=== PATIENT | female | born 1960 | race Caucasian/White ===

== ENCOUNTER 2019-06-09 04:49 | Inpatient (IN) | payer MEDICAID ==
[~2019-06-09] VITALS: Ht 162.6 cm; Wt 114.2 kg
[~2019-06-09 04:49] MED LIST: PROP40TA72 PO; VENL150C50 PO
[2019-06-09] MEDS ORDERED: albuterol 2.5 MG/3 ML nebule NEB ONE (05:00)
[2019-06-09] MEDS ORDERED: methylPREDNISolone sod succ 125mg/2ml vial IV ONE (05:05)
[2019-06-09 05:38] LABS: BASOPHILS # (AUTO) 0.1 X10'3 (0-0.2); BASOPHILS % (AUTO) 0.9 % (0-1); EOSINOPHILS # (AUTO) 0.2 X10'3 (0-0.9); EOSINOPHILS % (AUTO) 2.3 % (0-6); HEMATOCRIT 29.7 % (35.0-45.0); HEMOGLOBIN 9.6 g/dl (12.0-16.0); LYMPHOCYTES # (AUTO) 2.1 X10'3 (1.1-4.8); MEAN CORPUSCULAR HGB CONC 32.5 g/dL (33.0-36.5); MEAN CORPUSCULAR VOLUME 92.5 FL (78-98); MEAN PLATELET VOLUME 7.2 FL (7.4-10.4); MONOCYTES # (AUTO) 0.4 X10'3 (0-0.9); MONOCYTES % (AUTO) 5.8 % (2-12); NEUTROPHILS # (AUTO) 4.5 X10'3 (1.8-7.7); PLATELET COUNT 217 X10'3 (140-440); RED BLOOD COUNT 3.21 X10'6 (4.20-5.60); RED CELL DISTRIBUTION WIDTH 16.9 % (11.5-14.5); WHITE BLOOD COUNT 7.3 X10'3 (4.5-11.0)
[2019-06-09 06:16] LABS: ALANINE AMINOTRANSFERASE 19 U/L (12-78); ALBUMIN 3.2 G/DL (3.4-5.0); ALBUMIN/GLOBULIN RATIO 0.7 (1.1-1.5); ALKALINE PHOSPHATASE 63 IU/L (46-116); ANION GAP 11 (8-16); ASPARTATE AMINO TRANSFERASE 19 U/L (10-37); BILIRUBIN,TOTAL 0.5 MG/DL (0.1-1.0); BLOOD UREA NITROGEN 16 MG/DL (7-18); BUN/CREATININE RATIO 14.5 (6.6-38.0); CALCIUM 8.5 MG/DL (8.5-10.1); CHLORIDE 105 MMOL/L (99-107); GLUCOSE 127 MG/DL (70-104); POTASSIUM 3.9 MMOL/L (3.5-5.1); SODIUM 141 MMOL/L (135-145); TOTAL CARBON DIOXIDE 25.3 MMOL/L (24-32); TOTAL PROTEIN 7.9 G/DL (6.4-8.2); eGFR 51 ML/MIN
[2019-06-09 06:17] LABS: PARTIAL THROMBOPLASTIN TIME 27 SECONDS (22-32)
[2019-06-09] MEDS ORDERED: aspirin 325mg tablet PO ONE (06:35)
[2019-06-09] MEDS ORDERED: heparin 10,000 units/1 ML INJ IV ONE ×2 (06:40→06:50)
[2019-06-09] MEDS ORDERED: heparin 10,000 units/1 ML INJ IV PRN (06:40)
[2019-06-09] MEDS: heparin 25,000 UNIT/250ml bag 250 ML IV SCH ×2 (07:19→20:09)
[2019-06-09] MEDS ORDERED: furosemide 10 MG/1 ML 10ml inj IV ONE (07:25)
[2019-06-09] MEDS ORDERED: acetaminophen 325mg tablet PO PRN (07:50)
[2019-06-09] MEDS ORDERED: ondansetron/PF 4mg/2ml inj IV PRN (07:50)
[2019-06-09] MEDS ORDERED: magnesium hydroxide 30ml (MOM) UD suspension PO PRN (07:50)
[2019-06-09] MEDS ORDERED: mag hydrox/Alum hydrox/simeth 30ml oral suspension PO PRN (07:50)
[2019-06-09] MEDS: furosemide 20 MG/2 ML vial IV SCH ×2 (08:00→20:15)
[2019-06-09] MEDS ORDERED: LISI-600 PO (08:02)
[2019-06-09] MEDS ORDERED: ONDA4TAB6 PO (08:40)
[2019-06-09] MEDS ORDERED: ATOR10TA87 PO (08:40)
[2019-06-09] MEDS ORDERED: LISI-642 PO (08:40)
[2019-06-09] MEDS: atorvastatin 20mg tablet PO SCH (09:52)
[2019-06-09] MEDS: aspirin 81mg tablet.DR PO SCH (09:52)
--- NOTE | 2019-06-09 11:00 | NUR ---
Patient in room PCU 3012. I have received report from SHIKHA Galan and had the opportunity to ask questions and assume patient care.
[2019-06-09] MEDS ORDERED: LISI2.5T2 PO (11:05)
[2019-06-09] MEDS ORDERED: PROP20TA6 PO (11:06)
[2019-06-09 11:25] VITALS: BP 124/43
[2019-06-09] MEDS: ipratropium/albuterol 3ml nebule NEB SCH ×4 (11:46→23:41)
[2019-06-09 12:00] VITALS: BP 110/54
--- NOTE | 2019-06-09 12:11 | NUR ---
Sent to Dr Fontaine PAGER ID: [phone] MESSAGE: RE: Joyce Oliver 3012C. Q6hr PTT needed for heparin drip. Next one due at 3478. -[place] 0202
[2019-06-09 15:00] VITALS: BP 155/68
[2019-06-09] MEDS ORDERED: pneumococcal 23-VAL P-sac vacc 25 mcg/0.5ml vial IMVAC ONE (17:25)
[2019-06-09 18:00] VITALS: BP 118/65
[2019-06-09] MEDS ORDERED: iohexol 350MG/ML 100ml bottle IV ONE (18:06)
--- NOTE | 2019-06-09 18:08 | NUR ---
Sent to Dr Fontaine PAGER ID: [phone] MESSAGE: RE: Joyce Oliver [id number]. Are we continuing the heparin drip after it finishes? -[facility] [phone]
--- NOTE | 2019-06-09 18:25 | NUR ---
Patient in room PCU 3012C. I have received report from SHIKHA Fournier and had the opportunity to ask questions and assume patient care. Pt is in 3L of oxygen via NC, denies CP, dizziness, or pain. Will continue to monitor
--- NOTE | 2019-06-09 18:41 | NUR ---
Problems reprioritized. Patient report given, questions answered & plan of care reviewed with SHIKHA Buck and SHIKHA Blancas.
[2019-06-09] MEDS: methylPREDNISolone sod succ 125mg/2ml vial IV SCH (20:16)
--- NOTE | 2019-06-09 21:21 | NUR ---
PAGER ID: [phone] MESSAGE: [id number] Joyce Oliver gtt running @ 1200units/hr. CT of chest resulted, negative for PE. Last troponin 0.05. Continue? Cielo TRIVEDI [id number] Addendum: 06/09/19 at 2135 by Cielo Lozano RN Orders to D/Marielos wheeler
[2019-06-09] MEDS: levoFLOXACIN-Levaquin 500mg/D5 100 ML IV SCH (21:54)
[2019-06-09 22:00] VITALS: BP 126/62
[2019-06-10 02:00] VITALS: BP 124/63
[2019-06-10] MEDS: ipratropium/albuterol 3ml nebule NEB SCH ×6 (03:34→23:25)
[2019-06-10 06:09] LABS: BASOPHILS % (AUTO) 0.3 % (0-1); EOSINOPHILS % (AUTO) 0 % (0-6); HEMATOCRIT 29.5 % (35.0-45.0); HEMOGLOBIN 9.4 g/dl (12.0-16.0); LYMPHOCYTES # (AUTO) 0.6 X10'3 (1.1-4.8); LYMPHOCYTES % (AUTO) 3.8 % (21-51); MEAN CORPUSCULAR HEMOGLOBIN 29.3 PG (27.0-31.0); MEAN CORPUSCULAR HGB CONC 31.9 g/dL (33.0-36.5); MEAN CORPUSCULAR VOLUME 91.9 FL (78-98); MEAN PLATELET VOLUME 7.3 FL (7.4-10.4); MONOCYTES # (AUTO) 0.4 X10'3 (0-0.9); MONOCYTES % (AUTO) 2.3 % (2-12); NEUTROPHILS # (AUTO) 15.7 X10'3 (1.8-7.7); NEUTROPHILS % (AUTO) 93.6 % (42-75); PLATELET COUNT 193 X10'3 (140-440); RED CELL DISTRIBUTION WIDTH 16.9 % (11.5-14.5); WHITE BLOOD COUNT 16.8 X10'3 (4.5-11.0)
--- NOTE | 2019-06-10 06:25 | NUR ---
[place]rientee documentation: I have reviewed and agree with all interventions, assessments performed and documented by Anna Marie TRIVEDI. [place]ee Medication Administration: For this medication-pass time frame, all medication were reviewed, dispensed, administered and documented per hospital policy by Anna Marie TRIVEDI
[2019-06-10 06:29] LABS: ALBUMIN 3.1 G/DL (3.4-5.0); ANION GAP 10 (8-16); BLOOD UREA NITROGEN 24 MG/DL (7-18); CALCIUM 8.8 MG/DL (8.5-10.1); CHLORIDE 104 MMOL/L (99-107); CREATININE 1.09 MG/DL (0.40-0.90); GLUCOSE 155 MG/DL (70-104); POTASSIUM 4.4 MMOL/L (3.5-5.1); SODIUM 142 MMOL/L (135-145); TOTAL CARBON DIOXIDE 27.9 MMOL/L (24-32); eGFR 52 ML/MIN
--- NOTE | 2019-06-10 06:35 | NUR ---
Problems reprioritized. Patient report given, questions answered & plan of care reviewed with Mariah RN.
--- NOTE | 2019-06-10 06:40 | NUR ---
Patient in room PCU 3012. I have received report from SHIKHA Buck and had the opportunity to ask questions and assume patient care.
[2019-06-10 07:00] VITALS: BP 97/55
[2019-06-10] MEDS ORDERED: metoprolol tartrate 50mg tablet PO ONE (10:55)
[2019-06-10 11:00] VITALS: BP 125/63
[2019-06-10] MEDS: levoFLOXACIN-Levaquin 500mg/D5 100 ML IV SCH (11:11)
[2019-06-10] MEDS: aspirin 81mg tablet.DR PO SCH (11:12)
[2019-06-10] MEDS: atorvastatin 20mg tablet PO SCH (11:12)
[2019-06-10] MEDS: methylPREDNISolone sod succ 125mg/2ml vial IV SCH ×2 (11:12→20:09)
[2019-06-10] MEDS: enoxaparin 40mg/0.4ml syringe SQ SCH (11:13)
[2019-06-10] MEDS ORDERED: pneumococcal 23-VAL P-sac vacc 25 mcg/0.5ml vial IMVAC ONE (12:10)
[2019-06-10] MEDS ORDERED: nitroGLYCERIN 0.4mg SUBLingual tab SL PRN (13:45)
[2019-06-10] MEDS ORDERED: metoprolol tartrate 1mg/ml inj IV PRN (13:45)
[2019-06-10] MEDS ORDERED: aminophylline 250mg/10ml inj. IV PRN (13:45)
[2019-06-10] MEDS ORDERED: regadenoson 0.4mg/5ml syringe IV PRN (13:45)
--- NOTE | 2019-06-10 14:45 | NUR ---
Pt off the floor to NM for a portion of armond scan
[2019-06-10 15:00] VITALS: BP 107/59
[2019-06-10 18:00] VITALS: BP 103/60
--- NOTE | 2019-06-10 18:30 | NUR ---
Problems reprioritized. Patient report given, questions answered & plan of care reviewed with SHIKHA Palomo.
[2019-06-10] MEDS ORDERED: non-formulary drug (Propranolol Hcl 1 TAB) PO SCH (20:00)
[2019-06-10] MEDS ORDERED: metoprolol tartrate 12.5mg (1/2 tablet) PO SCH (20:00)
[2019-06-10] MEDS: furosemide 40mg/4ml inj IV SCH (20:09)
[2019-06-10] MEDS: propranolol 10mg tablet PO SCH (20:12)
[2019-06-10] MEDS: lactobacillus rhamnosus 10,000 MMU CELLS/CAPSULE PO SCH (20:13)
[2019-06-10 22:00] VITALS: BP 115/56
[2019-06-11 02:00] VITALS: BP 135/75
[2019-06-11] MEDS: ipratropium/albuterol 3ml nebule NEB SCH ×6 (03:17→23:00)
[2019-06-11 05:26] LABS: BASOPHILS % (AUTO) 0.1 % (0-1); EOSINOPHILS % (AUTO) 0 % (0-6); HEMATOCRIT 28.8 % (35.0-45.0); HEMOGLOBIN 9.1 g/dl (12.0-16.0); LYMPHOCYTES # (AUTO) 0.8 X10'3 (1.1-4.8); LYMPHOCYTES % (AUTO) 6.4 % (21-51); MEAN CORPUSCULAR HEMOGLOBIN 29.2 PG (27.0-31.0); MEAN CORPUSCULAR HGB CONC 31.6 g/dL (33.0-36.5); MEAN CORPUSCULAR VOLUME 92.4 FL (78-98); MEAN PLATELET VOLUME 7.8 FL (7.4-10.4); MONOCYTES # (AUTO) 0.3 X10'3 (0-0.9); MONOCYTES % (AUTO) 2.7 % (2-12); NEUTROPHILS % (AUTO) 90.8 % (42-75); PLATELET COUNT 194 X10'3 (140-440); RED BLOOD COUNT 3.11 X10'6 (4.20-5.60); RED CELL DISTRIBUTION WIDTH 17.4 % (11.5-14.5); WHITE BLOOD COUNT 12.1 X10'3 (4.5-11.0)
[2019-06-11 05:27] LABS: ALBUMIN 3.2 G/DL (3.4-5.0); ANION GAP 6 (8-16); BLOOD UREA NITROGEN 32 MG/DL (7-18); BUN/CREATININE RATIO 29.6 (6.6-38.0); CALCIUM 8.7 MG/DL (8.5-10.1); CHLORIDE 103 MMOL/L (99-107); CREATININE 1.08 MG/DL (0.40-0.90); GLUCOSE 146 MG/DL (70-104); POTASSIUM 4.7 MMOL/L (3.5-5.1); SODIUM 139 MMOL/L (135-145); TOTAL CARBON DIOXIDE 30.3 MMOL/L (24-32); eGFR 52 ML/MIN
--- NOTE | 2019-06-11 06:15 | NUR ---
Problems reprioritized. Patient report given, questions answered & plan of care reviewed with Catherine TRIVEDI.
--- NOTE | 2019-06-11 06:55 | NUR ---
Patient in room PCU 3012. I have received report from Stacia and had the opportunity to ask questions and assume patient care.
[2019-06-11 07:00] VITALS: BP 106/50
[2019-06-11] MEDS: propranolol 10mg tablet PO SCH ×2 (07:35→21:07)
[2019-06-11] MEDS: aspirin 81mg tablet.DR PO SCH (07:35)
[2019-06-11] MEDS: enoxaparin 40mg/0.4ml syringe SQ SCH (07:35)
[2019-06-11] MEDS: lactobacillus rhamnosus 10,000 MMU CELLS/CAPSULE PO SCH ×2 (07:35→21:07)
[2019-06-11] MEDS: lisinopril 2.5mg tablet PO SCH (07:35)
[2019-06-11] MEDS: atorvastatin 10mg tablet PO SCH (07:36)
[2019-06-11] MEDS: venlafaxine XR 75mg capsule (Q24H) PO SCH (07:36)
[2019-06-11] MEDS: furosemide 40mg/4ml inj IV SCH (07:36)
[2019-06-11] MEDS: levoFLOXACIN-Levaquin 500mg/D5 100 ML IV SCH (07:36)
[2019-06-11] MEDS: methylPREDNISolone sod succ 125mg/2ml vial IV SCH ×2 (07:36→21:06)
[2019-06-11] MEDS ORDERED: VENLAFAXINE HCL 150 MG PO SCH (08:00)
[2019-06-11 11:00] VITALS: BP 92/53
[2019-06-11 15:00] VITALS: BP 114/71
--- NOTE | 2019-06-11 18:10 | NUR ---
Problems reprioritized. Patient report given, questions answered & plan of care reviewed with Aleyda TRIVEDI.
--- NOTE | 2019-06-11 18:30 | NUR ---
Patient in room PCU 3012. I have received report from Rachele TRIVEDI and had the opportunity to ask questions and assume patient care with Violetta TRIVEDI.. pt resting in bed, lots of family at bedside. Code status discussion with pt and family, pt is very clear that she wants to be DNR. order obtained from Addendum: 06/12/19 at 0702 by Aleyda Riggs RN please disregard note about code status, this was the wrong pt. this pt still Full code
[2019-06-11 19:00] VITALS: BP 134/64
[2019-06-11] MEDS: furosemide 20 MG/2 ML vial IV SCH (21:05)
[2019-06-11 23:00] VITALS: BP 109/57
[2019-06-12 03:00] VITALS: BP 130/77
[2019-06-12] MEDS: ipratropium/albuterol 3ml nebule NEB SCH ×6 (03:38→22:56)
[2019-06-12 06:02] LABS: BASOPHILS % (AUTO) 0 % (0-1); EOSINOPHILS % (AUTO) 0 % (0-6); HEMATOCRIT 29.1 % (35.0-45.0); HEMOGLOBIN 9.4 g/dl (12.0-16.0); LYMPHOCYTES # (AUTO) 0.8 X10'3 (1.1-4.8); MEAN CORPUSCULAR HEMOGLOBIN 29.4 PG (27.0-31.0); MEAN CORPUSCULAR HGB CONC 32.5 g/dL (33.0-36.5); MEAN CORPUSCULAR VOLUME 90.5 FL (78-98); MEAN PLATELET VOLUME 7.3 FL (7.4-10.4); MONOCYTES # (AUTO) 0.4 X10'3 (0-0.9); MONOCYTES % (AUTO) 3.7 % (2-12); NEUTROPHILS # (AUTO) 8.7 X10'3 (1.8-7.7); NEUTROPHILS % (AUTO) 88.3 % (42-75); PLATELET COUNT 197 X10'3 (140-440); RED BLOOD COUNT 3.21 X10'6 (4.20-5.60); RED CELL DISTRIBUTION WIDTH 17.6 % (11.5-14.5); WHITE BLOOD COUNT 9.8 X10'3 (4.5-11.0)
[2019-06-12 06:14] LABS: ALBUMIN 3.1 G/DL (3.4-5.0); ANION GAP 9 (8-16); BLOOD UREA NITROGEN 41 MG/DL (7-18); BUN/CREATININE RATIO 35.7 (6.6-38.0); CALCIUM 8.4 MG/DL (8.5-10.1); CHLORIDE 102 MMOL/L (99-107); CREATININE 1.15 MG/DL (0.40-0.90); GLUCOSE 167 MG/DL (70-104); POTASSIUM 4.3 MMOL/L (3.5-5.1); SODIUM 139 MMOL/L (135-145); TOTAL CARBON DIOXIDE 28.2 MMOL/L (24-32); eGFR 49 ML/MIN
--- NOTE | 2019-06-12 06:21 | NUR ---
Problems reprioritized. Patient report given, questions answered & plan of care reviewed with charis Lopez. Orientee documentation: I have reviewed and agree with all interventions, assessments performed and documented by Suzanne LOPEZ.
--- NOTE | 2019-06-12 06:33 | NUR ---
Patient in room PCU 3012C. I have received report from SHIKHA Morrissey and had the opportunity to ask questions and assume patient care. Pt resting comfortably at this time.
[2019-06-12 07:00] VITALS: BP 138/48
[2019-06-12] MEDS: furosemide 20 MG/2 ML vial IV SCH ×2 (07:45→20:22)
[2019-06-12] MEDS: methylPREDNISolone sod succ 125mg/2ml vial IV SCH ×2 (07:45→20:33)
[2019-06-12] MEDS: levoFLOXACIN-Levaquin 500mg/D5 100 ML IV SCH (07:45)
[2019-06-12] MEDS: enoxaparin 40mg/0.4ml syringe SQ SCH (07:46)
[2019-06-12] MEDS: lactobacillus rhamnosus 10,000 MMU CELLS/CAPSULE PO SCH ×2 (07:47→20:34)
[2019-06-12] MEDS: lisinopril 2.5mg tablet PO SCH (07:47)
[2019-06-12] MEDS: propranolol 10mg tablet PO SCH ×2 (07:47→20:34)
[2019-06-12] MEDS: atorvastatin 10mg tablet PO SCH (07:47)
[2019-06-12] MEDS: aspirin 81mg tablet.DR PO SCH (07:47)
[2019-06-12] MEDS: venlafaxine XR 75mg capsule (Q24H) PO SCH (07:47)
[2019-06-12 11:00] VITALS: BP 126/67
[2019-06-12 15:00] VITALS: BP 109/49
--- NOTE | 2019-06-12 18:23 | NUR ---
Problems reprioritized. Patient report given, questions answered & plan of care reviewed with SHIKHA Maynard.
--- NOTE | 2019-06-12 18:26 | NUR ---
I have reviewed and agree with all interventions, assessments performed and documented by Tiarra TRIVEDI.
[2019-06-12 19:00] VITALS: BP 111/60
[2019-06-12 23:00] VITALS: BP 104/53
[2019-06-13 03:00] VITALS: BP 132/69
[2019-06-13] MEDS: ipratropium/albuterol 3ml nebule NEB SCH ×3 (03:00→10:50)
[2019-06-13 05:22] LABS: BASOPHILS % (AUTO) 0.1 % (0-1); EOSINOPHILS % (AUTO) 0 % (0-6); HEMATOCRIT 31.2 % (35.0-45.0); HEMOGLOBIN 10.2 g/dl (12.0-16.0); LYMPHOCYTES # (AUTO) 0.8 X10'3 (1.1-4.8); LYMPHOCYTES % (AUTO) 8.5 % (21-51); MEAN CORPUSCULAR HEMOGLOBIN 29.3 PG (27.0-31.0); MEAN CORPUSCULAR HGB CONC 32.6 g/dL (33.0-36.5); MEAN CORPUSCULAR VOLUME 89.9 FL (78-98); MEAN PLATELET VOLUME 7.2 FL (7.4-10.4); MONOCYTES # (AUTO) 0.6 X10'3 (0-0.9); MONOCYTES % (AUTO) 6.8 % (2-12); NEUTROPHILS % (AUTO) 84.6 % (42-75); PLATELET COUNT 232 X10'3 (140-440); RED BLOOD COUNT 3.47 X10'6 (4.20-5.60); RED CELL DISTRIBUTION WIDTH 17.8 % (11.5-14.5); WHITE BLOOD COUNT 9.5 X10'3 (4.5-11.0)
[2019-06-13 05:25] LABS: ALBUMIN 3.3 G/DL (3.4-5.0); ANION GAP 6 (8-16); BLOOD UREA NITROGEN 41 MG/DL (7-18); BUN/CREATININE RATIO 40.6 (6.6-38.0); CALCIUM 8.8 MG/DL (8.5-10.1); CHLORIDE 104 MMOL/L (99-107); CREATININE 1.01 MG/DL (0.40-0.90); GLUCOSE 162 MG/DL (70-104); POTASSIUM 4.3 MMOL/L (3.5-5.1); SODIUM 140 MMOL/L (135-145); TOTAL CARBON DIOXIDE 30.2 MMOL/L (24-32); eGFR 56 ML/MIN
--- NOTE | 2019-06-13 06:19 | NUR ---
Problems reprioritized. Patient report given, questions answered & plan of care reviewed with eve arias. orientee documentation: I have reviewed and agree with all interventions, assessments performed and documented by leno arias.
--- NOTE | 2019-06-13 06:32 | NUR ---
Patient in room PCU 3012. I have received report from Aleyda RN and SHIKHA Palacios and had the opportunity to ask questions and assume patient care. Patient is currently sleeping in bed, bed locked and low, call light in reach, no acute distress, will continue to monitor.
[2019-06-13 07:14] VITALS: BP 121/56
[2019-06-13] MEDS: atorvastatin 10mg tablet PO SCH (09:15)
[2019-06-13] MEDS: furosemide 20 MG/2 ML vial IV SCH (09:15)
[2019-06-13] MEDS: propranolol 10mg tablet PO SCH (09:15)
[2019-06-13] MEDS: methylPREDNISolone sod succ 125mg/2ml vial IV SCH (09:15)
[2019-06-13 09:19] VITALS: BP_SYST 105
[2019-06-13] MEDS: lactobacillus rhamnosus 10,000 MMU CELLS/CAPSULE PO SCH (09:19)
[2019-06-13] MEDS: lisinopril 2.5mg tablet PO SCH (09:19)
[2019-06-13] MEDS: aspirin 81mg tablet.DR PO SCH (09:19)
[2019-06-13] MEDS: venlafaxine XR 75mg capsule (Q24H) PO SCH (09:19)
[2019-06-13] MEDS: enoxaparin 40mg/0.4ml syringe SQ SCH (09:20)
[2019-06-13] MEDS ORDERED: SPIR25TA5 PO (10:37)
[2019-06-13] MEDS ORDERED: IPRA3AMP9 NEB (10:37)
[2019-06-13] MEDS ORDERED: FURO-149 PO (10:37)
[2019-06-13] MEDS ORDERED: LEVO500T89 PO (10:37)
[2019-06-13] MEDS ORDERED: PRED20TA PO ×2 (10:56→10:58)
[2019-06-13] MEDS ORDERED: PRED10TA23 PO ×2 (10:58→11:04)
[2019-06-13] MEDS ORDERED: levoFLOXACIN 500mg tablet PO SCH (11:00)
[2019-06-13] MEDS ORDERED: COMP1EAC86 INH (11:06)
--- NOTE | 2019-06-13 15:23 | NUR ---
received order for patient discharge, belongings gathered, discharge instructions given, patient verbalized understanding, PIV and telemetry removed, PIV catheter tip intact, hemostasis achieved, prescriptions called to [facility] per patient request, patient stable at time of discharge, will arrange her own follow up appointment. Patient left with her accompanying her.
[2019-06-15 13:12] LABS: ATYPICAL PANCA <1:20 titer (Neg:<1:20); CYTOPLASMIC (C-ANCA) <1:20 titer (Neg:<1:20); PERINUCLEAR (P-ANCA) <1:20 titer (Neg:<1:20)
== END 2019-06-13 15:02 | disposition home or self-care (01) | DRG 190 ==
LOC: ER 04:50 → PCU 3S 11:11 → CMPBEDREQ 06-11 21:12
PROVIDERS: ADMIT Family Medicine; ATTEND Internal Medicine
PROC: B32T1ZZ Computerized Tomography (CT Scan) of Left Pulmonary Artery using Low Osmolar Contrast (ICD-10-PCS; 2019-06-09)
PROC: B3201ZZ Computerized Tomography (CT Scan) of Thoracic Aorta using Low Osmolar Contrast (ICD-10-PCS; 2019-06-09)
PROC: B32S1ZZ Computerized Tomography (CT Scan) of Right Pulmonary Artery using Low Osmolar Contrast (ICD-10-PCS; 2019-06-09)
PROC: 3E0234Z Introduction of Serum, Toxoid and Vaccine into Muscle, Percutaneous Approach (ICD-10-PCS; principal; 2019-06-10)
DX: I21.A1 Myocardial infarction type 2 (principal); J96.01 Acute respiratory failure with hypoxia; I47.2 Ventricular tachycardia; J12.9 Viral pneumonia, unspecified; I50.9 Heart failure, unspecified; B18.2 Chronic viral hepatitis C; I11.0 Hypertensive heart disease with heart failure; E66.01 Morbid (severe) obesity due to excess calories; D63.8 Anemia in other chronic diseases classified elsewhere; E78.5 Hyperlipidemia, unspecified; F17.210 Nicotine dependence, cigarettes, uncomplicated; F10.20 Alcohol dependence, uncomplicated; F32.9 Major depressive disorder, single episode, unspecified; I48.91 Unspecified atrial fibrillation; J44.1 Chronic obstructive pulmonary disease with (acute) exacerbation; K74.60 Unspecified cirrhosis of liver; Z68.41 Body mass index [BMI] 40.0-44.9, adult; Z79.899 Other long term (current) drug therapy; Z82.49 Family history of ischemic heart disease and other diseases of the circulatory system; Z87.09 Personal history of other diseases of the respiratory system; Z88.5 Allergy status to narcotic agent; Z23 Encounter for immunization; Z98.891 History of uterine scar from previous surgery; Z71.6 Tobacco abuse counseling
CPT/HCPCS: 36415; 71045; 71275; 78451; 80048; 80053; 83735; 83880; 84145; 84484; 85025; 85610; 85651; 85730; 86038; 86140; 86256; 87081; 90732; 93005; 93306; 94640; 94760; 96374; 96375; 99285; A9500; G0378; J1644; J1650; J1940; J1956; J2930; Q9967

== ENCOUNTER 2019-08-01 12:32 | Outpatient (CLI) | payer MEDICAID ==
[~2019-08-01] VITALS: Ht 162.6 cm; Wt 114.3 kg
[~2019-08-01 12:32] MED LIST changes: +ATOR10TA87 PO; +COMP1EAC86 INH; +FURO-149 PO; +IPRA3AMP9 NEB; +LEVO500T89 PO; +LISI2.5T2 PO; +PRED10TA23 PO; +PRED20TA PO; +PROP20TA6 PO; -PROP40TA72 PO; +SPIR25TA5 PO
[2019-08-01] MEDS ORDERED: albuterol 2.5 MG/3 ML nebule NEB ONE (13:10)
== END 2019-08-01 23:59 | disposition home or self-care (01) ==
LOC: RT 12:32
PROVIDERS: ATTEND Family Medicine
DX: J44.9 Chronic obstructive pulmonary disease, unspecified (principal); E66.9 Obesity, unspecified; Z79.899 Other long term (current) drug therapy; Z87.891 Personal history of nicotine dependence
CPT/HCPCS: 94060; 94729; 94760

== ENCOUNTER 2019-11-01 08:39 | Outpatient (CLI) | payer MEDICAID | END 2019-11-01 23:59 | disposition home or self-care (01) | LOC: RAD 08:39 | PROVIDERS: ATTEND Internal Medicine Critical Care Medicine | DX: J69.0 Pneumonitis due to inhalation of food and vomit (principal); I51.7 Cardiomegaly | CPT/HCPCS: 71046 ==

== ENCOUNTER 2020-04-25 21:50 | Inpatient (IN) | payer MEDICAID ==
[~2020-04-25] VITALS: Ht 162.6 cm; Wt 130.4 kg
[2020-04-25 22:41] LABS: MEAN CORPUSCULAR VOLUME 99.7 FL (78-98)
[2020-04-25 22:43] LABS: BASOPHILS % (AUTO) 0.5 % (0-1); EOSINOPHILS # (AUTO) 0.1 X10'3 (0-0.9); EOSINOPHILS % (AUTO) 1.4 % (0-6); HEMATOCRIT 26.9 % (35.0-45.0); LYMPHOCYTES # (AUTO) 1.9 X10'3 (1.1-4.8); LYMPHOCYTES % (AUTO) 22.4 % (21-51); MEAN CORPUSCULAR HEMOGLOBIN 33.3 PG (27.0-31.0); MEAN CORPUSCULAR HGB CONC 33.4 g/dL (33.0-36.5); MEAN PLATELET VOLUME 7.8 FL (7.4-10.4); MONOCYTES # (AUTO) 0.6 X10'3 (0-0.9); MONOCYTES % (AUTO) 7.3 % (2-12); NEUTROPHILS # (AUTO) 5.8 X10'3 (1.8-7.7); NEUTROPHILS % (AUTO) 68.4 % (42-75); PLATELET COUNT 184 X10'3 (140-440); RED BLOOD COUNT 2.69 X10'6 (4.20-5.60); RED CELL DISTRIBUTION WIDTH 17.4 % (11.5-14.5); WHITE BLOOD COUNT 8.5 X10'3 (4.5-11.0)
[2020-04-25 22:50] LABS: ALANINE AMINOTRANSFERASE 24 U/L (12-78); ALBUMIN 3.1 G/DL (3.4-5.0); ALBUMIN/GLOBULIN RATIO 0.8 (1.1-1.5); ALKALINE PHOSPHATASE 52 IU/L (46-116); ANION GAP 8 (8-16); ASPARTATE AMINO TRANSFERASE 26 U/L (10-37); BLOOD UREA NITROGEN 36 MG/DL (7-18); BUN/CREATININE RATIO 19.9 (6.6-38.0); CALCIUM 8.4 MG/DL (8.5-10.1); CHLORIDE 103 MMOL/L (99-107); CREATININE 1.81 MG/DL (0.40-0.90); GLUCOSE 137 MG/DL (70-104); POTASSIUM 4.2 MMOL/L (3.5-5.1); SODIUM 139 MMOL/L (135-145); TOTAL CARBON DIOXIDE 27.8 MMOL/L (24-32); TOTAL PROTEIN 7.1 G/DL (6.4-8.2); eGFR 29 ML/MIN
[2020-04-25] MEDS ORDERED: FERR134T2 PO (23:58)
[2020-04-25] MEDS ORDERED: FURO40TA4 PO (23:58)
[2020-04-25] MEDS ORDERED: METO-411 PO (23:58)
[2020-04-25] MEDS ORDERED: SPIR25TA5 PO (23:58)
[2020-04-26] VITALS (17 sets, daily range): BP systolic 75–151; BP diastolic 39–71
[2020-04-26] MEDS ORDERED: aspirin 81mg tab.chew PO ONE (00:20)
[2020-04-26] MEDS ORDERED: magnesium 4gm in 100ml NS 100 ML IV PRN (00:55)
[2020-04-26] MEDS ORDERED: acetaminophen 325mg tablet PO PRN (00:55)
[2020-04-26] MEDS ORDERED: normal saline 1000ml 1,000 ML IV SCH ×2 (00:55→16:35)
[2020-04-26] MEDS ORDERED: potassium CL 10mEq/100ml bag 100 ML IV PRN ×2 (00:55)
[2020-04-26] MEDS ORDERED: magnesium 2GM in 50ml NS 50 ML IV PRN (00:55)
[2020-04-26] MEDS ORDERED: magnesium hydroxide 30ml (MOM) UD suspension PO PRN (00:55)
[2020-04-26] MEDS ORDERED: magnesium Cl slow-release 64mg tablet PO PRN (00:55)
[2020-04-26] MEDS ORDERED: mag hydrox/Alum hydrox/simeth 30ml oral suspension PO PRN (00:55)
[2020-04-26] MEDS ORDERED: potassium Cl 20 mEq SR tablet PO PRN ×2 (00:55)
--- NOTE | 2020-04-26 01:19 | NUR ---
Paged hospitalist to verify orders for NPO start and maintenance NS.
--- NOTE | 2020-04-26 01:21 | NUR ---
Received call back from hospitalist. Pt. may have food now and start NPO at 0200 and fluid ordered is for NS 100mL/hr x 1 L bag only.
--- NOTE | 2020-04-26 01:31 | NUR ---
Pt. consumed 100% of turkey sandwich, yogurt and apple juice. Pt. to be NPO after this.
[2020-04-26] MEDS ORDERED: metoprolol tartrate 1mg/ml inj IV PRN (02:05)
[2020-04-26] MEDS ORDERED: aminophylline 250mg/10ml inj. IV PRN (02:05)
[2020-04-26] MEDS ORDERED: regadenoson 0.4mg/5ml syringe IV ONE ×2 (02:05→02:15)
[2020-04-26] MEDS ORDERED: nitroGLYCERIN 0.4mg SUBLingual tab SL PRN (02:05)
--- NOTE | 2020-04-26 02:20 | NUR ---
received pt report from madi TRIVEDI ER, had opportunity to ask questions, pt VS stable, awaiting arival to unit.
--- NOTE | 2020-04-26 02:25 | NUR ---
pt arrived to unit, tele attached VS stable, pt oriented to unit.
--- NOTE | 2020-04-26 06:20 | NUR ---
Patient in room PCU 3025. I have received report from SHIKHA Wilson and had the opportunity to ask questions and assume patient care.
--- NOTE | 2020-04-26 06:26 | NUR ---
Problems reprioritized. Patient report given, questions answered & plan of care reviewed with Adrienne TRIVEDI.
[2020-04-26] MEDS: atorvastatin 10mg tablet PO SCH (07:32)
[2020-04-26] MEDS: venlafaxine XR 75mg capsule (Q24H) PO SCH (07:32)
[2020-04-26] MEDS: metoprolol succinate 25mg (24-HOUR) SR. Tablet PO SCH (08:00)
[2020-04-26] MEDS: furosemide 40mg tablet PO SCH (08:00)
[2020-04-26] MEDS: spironolactone 25 MG tablet PO SCH ×2 (08:00→20:00)
--- NOTE | 2020-04-26 08:30 | NUR ---
Per DR. Mccall's note, hold diuertics to see if kidney functions improved. Meteprolol held as well, due to blood pressure being 105/53 prior to cardiac stress test.
--- NOTE | 2020-04-26 12:35 | NUR ---
notified. PAGER ID: [phone] MESSAGE: Re: Joyce Oliver. 3025b. FYI Stress test report read. The reversibility extent map demonstrates an abnormality near the apex eccentric anteriorly and laterally.. Thank you. Adrienne Beach #[id number]
--- NOTE | 2020-04-26 16:08 | NUR ---
notified. Continuing to monitor. PAGER ID: [phone] MESSAGE: Re; Benito Joyce. [id number]. Pt O2 saturations during the day was 95% on RA. Pt laid down during echocardiogram, became short of breath and dropped to 90% on RA. O2 cannula at 3L applied raising 02 to 95%. continuing to monitor. Adrienne Beach, #[id number]
[2020-04-26 17:34] LABS: D-DIMER 2.14 MG/L FEU (0-0.50)
--- NOTE | 2020-04-26 17:40 | NUR ---
notified. Will continue to monitor. PAGER ID: [phone] MESSAGE: Re: Ling Oliver. 3025B. FYI D-dimer elevated at 2.14. Adrienne Beach #[id number]
[2020-04-26] MEDS ORDERED: heparin 25,000 UNIT/250ml bag 250 ML IV SCH (17:44)
[2020-04-26] MEDS ORDERED: heparin 10,000 units/1 ML INJ IV PRN (17:45)
[2020-04-26] MEDS ORDERED: heparin 10,000 units/1 ML INJ IV ONE (17:45)
--- NOTE | 2020-04-26 18:10 | NUR ---
Problems reprioritized. Patient report given, questions answered & plan of care reviewed with SHIKHA Melendez.
[2020-04-26 18:26] LABS: PARTIAL THROMBOPLASTIN TIME 24 SECONDS (22-32)
[2020-04-26] MEDS: K and/or MAG REPLACEMENT MC SCH (20:00)
[2020-04-26] MEDS ORDERED: LORazepam 2 mg/ml vial IV PRN (23:10)
[2020-04-26] MEDS: HYDROmorphone 1 mg/ml syringe IV PRN (23:25)
[2020-04-27] VITALS (11 sets, daily range): BP systolic 97–147; BP diastolic 41–71
[2020-04-27] MEDS: HYDROmorphone 1 mg/ml syringe IV PRN ×3 (04:16→22:06)
[2020-04-27 06:07] LABS: BASOPHILS # (AUTO) 0.1 X10'3 (0-0.2); BASOPHILS % (AUTO) 0.6 % (0-1); EOSINOPHILS # (AUTO) 0.1 X10'3 (0-0.9); EOSINOPHILS % (AUTO) 0.9 % (0-6); LYMPHOCYTES # (AUTO) 1.5 X10'3 (1.1-4.8); LYMPHOCYTES % (AUTO) 15.6 % (21-51); MEAN CORPUSCULAR HEMOGLOBIN 33.2 PG (27.0-31.0); MEAN CORPUSCULAR HGB CONC 33.5 g/dL (33.0-36.5); MEAN CORPUSCULAR VOLUME 98.9 FL (78-98); MEAN PLATELET VOLUME 7.8 FL (7.4-10.4); MONOCYTES # (AUTO) 0.8 X10'3 (0-0.9); MONOCYTES % (AUTO) 8.6 % (2-12); NEUTROPHILS # (AUTO) 7.3 X10'3 (1.8-7.7); NEUTROPHILS % (AUTO) 74.3 % (42-75); PLATELET COUNT 146 X10'3 (140-440); RED BLOOD COUNT 1.84 X10'6 (4.20-5.60); RED CELL DISTRIBUTION WIDTH 17.3 % (11.5-14.5); WHITE BLOOD COUNT 9.8 X10'3 (4.5-11.0)
--- NOTE | 2020-04-27 06:11 | NUR ---
Patient in room PCU 3025. I have received report from Al TRIVEDI and had the opportunity to ask questions and assume patient care.
[2020-04-27 06:18] LABS: ALANINE AMINOTRANSFERASE 19 U/L (12-78); ALBUMIN 2.7 G/DL (3.4-5.0); ALBUMIN/GLOBULIN RATIO 0.8 (1.1-1.5); ALKALINE PHOSPHATASE 38 IU/L (46-116); ANION GAP 8 (8-16); ASPARTATE AMINO TRANSFERASE 19 U/L (10-37); BILIRUBIN,TOTAL 1.1 MG/DL (0.1-1.0); BLOOD UREA NITROGEN 41 MG/DL (7-18); BUN/CREATININE RATIO 30.8 (6.6-38.0); CALCIUM 7.9 MG/DL (8.5-10.1); CHLORIDE 106 MMOL/L (99-107); CREATININE 1.33 MG/DL (0.40-0.90); GLUCOSE 151 MG/DL (70-104); MAGNESIUM 2.1 MG/DL (1.5-2.4); POTASSIUM 4.5 MMOL/L (3.5-5.1); SODIUM 140 MMOL/L (135-145); TOTAL CARBON DIOXIDE 26.1 MMOL/L (24-32); eGFR 41 ML/MIN
[2020-04-27 06:19] LABS: HEMATOCRIT 18.2 % (35.0-45.0); HEMOGLOBIN 6.1 g/dl (12.0-16.0)
--- NOTE | 2020-04-27 07:29 | NUR ---
Patient in room PCU 3025. I have received report from Al TRIVEDI and had the opportunity to ask questions and assume patient care.
--- NOTE | 2020-04-27 07:37 | NUR ---
PAGER ID: [phone] MESSAGE: [id number] Joyce Oliver, critical H&H 6.1, 18.2. Currently on heparin gtt for suspected PE, VQ ordered this AM. Catherine TRIVEDI [id number]
[2020-04-27] MEDS: atorvastatin 10mg tablet PO SCH (07:58)
[2020-04-27] MEDS: venlafaxine XR 75mg capsule (Q24H) PO SCH (07:58)
[2020-04-27] MEDS: metoprolol succinate 25mg (24-HOUR) SR. Tablet PO SCH (07:58)
[2020-04-27] MEDS: spironolactone 25 MG tablet PO SCH ×2 (08:00→20:00)
[2020-04-27] MEDS: furosemide 40mg tablet PO SCH (08:00)
[2020-04-27] MEDS: K and/or MAG REPLACEMENT MC SCH ×2 (08:00→20:00)
--- NOTE | 2020-04-27 08:15 | NUR ---
Spoke with Dr. Bocanegra regarding H&H, duiretics and VQ scan. would like 1 liter bolus prior to CTA. would hea
--- NOTE | 2020-04-27 08:16 | NUR ---
Spoke with Dr. Bocanegra regarding H&H, duiretics and VQ scan. would like 1 liter bolus prior to CTA. is cancelling the VQ scan. Consent obtained over the phone for blood once she returns from CT. would also like the heparin and lasix, aldactone held. Pt. also starting on Levaquin.
[2020-04-27] MEDS ORDERED: normal saline 1000ml 1,000 ML IVB ONE (08:20)
[2020-04-27] MEDS: levoFLOXACIN-Levaquin 750MG/D5 150 ML IV SCH (08:26)
[2020-04-27] MEDS ORDERED: iohexol 350MG/ML 100ml bottle IV ONE (09:05)
[2020-04-27 09:30] LABS: FERRITIN 56 NG/ML (8-252)
[2020-04-27 09:43] LABS: % IRON SATURATION 9 % (11-46); IRON 29 UG/DL (49-151); TOTAL IRON BINDING CAPACITY 332 UG/DL (259-388)
[2020-04-27] MEDS: ondansetron/PF 4mg/2ml inj IV PRN ×2 (09:44→17:45)
--- NOTE | 2020-04-27 10:16 | NUR ---
Telephone consent obtained with patient by Dr. Bocanegra
--- NOTE | 2020-04-27 10:29 | NUR ---
Notified Dr. Bocanegra of patient having an episode of vomiting 400 cc. No blood noted. When patient returns from CT, she will receive a unit of blood.
--- NOTE | 2020-04-27 13:46 | NUR ---
Patient is tolerating blood well. No s/sx of blood reaction noted. LS remain the same.
[2020-04-27] MEDS ORDERED: furosemide 40mg/4ml inj IV ONE (15:30)
--- NOTE | 2020-04-27 16:40 | NUR ---
PAGER ID: [phone] MESSAGE: [id number] Joyce Oliver IV was given. Do you want to DC IVF @ 50/HR? Catherine TRIVEDI [phone]
--- NOTE | 2020-04-27 18:00 | NUR ---
Patient in room PCU 3025. I have received report from Catherine TRIVEDI and had the opportunity to ask questions and assume patient care.
--- NOTE | 2020-04-27 18:23 | NUR ---
Problems reprioritized. Patient report given, questions answered & plan of care reviewed with Regina TRIVEDI. Pt. resting comfortably in no apparent distress.
[2020-04-27] MEDS: lactobacillus rhamnosus 10,000 MMU CELLS/CAPSULE PO SCH (20:49)
[2020-04-27 22:10] LABS: BASOPHILS # (AUTO) 0.1 X10'3 (0-0.2); BASOPHILS % (AUTO) 0.5 % (0-1); EOSINOPHILS # (AUTO) 0.1 X10'3 (0-0.9); EOSINOPHILS % (AUTO) 0.5 % (0-6); LYMPHOCYTES # (AUTO) 1.6 X10'3 (1.1-4.8); LYMPHOCYTES % (AUTO) 14.1 % (21-51); MEAN CORPUSCULAR HEMOGLOBIN 31.6 PG (27.0-31.0); MEAN CORPUSCULAR HGB CONC 32.7 g/dL (33.0-36.5); MEAN CORPUSCULAR VOLUME 96.5 FL (78-98); MEAN PLATELET VOLUME 8.6 FL (7.4-10.4); MONOCYTES % (AUTO) 8.9 % (2-12); NEUTROPHILS # (AUTO) 8.5 X10'3 (1.8-7.7); PLATELET COUNT 126 X10'3 (140-440); RED BLOOD COUNT 2.05 X10'6 (4.20-5.60); RED CELL DISTRIBUTION WIDTH 17.9 % (11.5-14.5); WHITE BLOOD COUNT 11.2 X10'3 (4.5-11.0)
[2020-04-27 22:17] LABS: HEMATOCRIT 19.8 % (35.0-45.0); HEMOGLOBIN 6.5 g/dl (12.0-16.0)
--- NOTE | 2020-04-27 22:27 | NUR ---
PAGER ID: [phone] MESSAGE: [id number] Joyce Oliver: H+H is 6.5/19.8, sent a occult stool down that will be positive, would you like to order something? Regina TRIVEDI 7062
[2020-04-27 23:35] LABS: OCCULT BLOOD STOOL POSITIVE (Neg)
[2020-04-28] VITALS (14 sets, daily range): BP systolic 99–127; BP diastolic 34–65
[2020-04-28] MEDS: pantoprazole 40MG/NS 100ML BAG 100 ML IV SCH ×5 (01:00→19:35)
--- NOTE | 2020-04-28 03:30 | NUR ---
PAGER ID: [phone] MESSAGE: [id number] Joyce Oliver: Unable to get second iv or blood draw for labs, MD MCDANIEL ordered second unit and will give now and the sodium ferric gluc. Regina TRIVEDI 7518
[2020-04-28] MEDS: sodium ferric gluc complex inj 125 MG in normal saline 100ml IV soln 90 ML IV SCH ×2 (03:41→08:52)
--- NOTE | 2020-04-28 05:00 | NUR ---
Critical H/H MD Mccall was notified about the critical H/H of 7.1/20.8. No new orders given. Will continue to monitor.
[2020-04-28 05:23] LABS: BASOPHILS % (AUTO) 0.4 % (0-1); EOSINOPHILS # (AUTO) 0.2 X10'3 (0-0.9); EOSINOPHILS % (AUTO) 1.5 % (0-6); HEMOGLOBIN 7.1 g/dl (12.0-16.0); LYMPHOCYTES # (AUTO) 1.8 X10'3 (1.1-4.8); MEAN CORPUSCULAR HEMOGLOBIN 32.1 PG (27.0-31.0); MEAN CORPUSCULAR HGB CONC 33.9 g/dL (33.0-36.5); MEAN CORPUSCULAR VOLUME 94.4 FL (78-98); MONOCYTES # (AUTO) 0.8 X10'3 (0-0.9); MONOCYTES % (AUTO) 7.8 % (2-12); NEUTROPHILS # (AUTO) 7.6 X10'3 (1.8-7.7); NEUTROPHILS % (AUTO) 73.3 % (42-75); PLATELET COUNT 136 X10'3 (140-440); RED BLOOD COUNT 2.21 X10'6 (4.20-5.60); WHITE BLOOD COUNT 10.4 X10'3 (4.5-11.0)
--- NOTE | 2020-04-28 05:30 | NUR ---
Unit of blood on hold Patient's only IV infiltrated while on the second unit of blood and had to be put on hold. Many attempts were made to put in a PIC on the arms without any luck. ER nurse "Mahendra" was able to put in a EJ to the left side of the neck for the rest of the transfusion. Unfortunately the vital signs will not line up with the initial transfusion vital sign times but the transfusion will be done within the 4 hours. No transfusion reactions at this time and the patient is good spirits with better color to her cheeks.
[2020-04-28 05:39] LABS: ALANINE AMINOTRANSFERASE 18 U/L (12-78); ALBUMIN 2.7 G/DL (3.4-5.0); ALBUMIN/GLOBULIN RATIO 0.8 (1.1-1.5); ALKALINE PHOSPHATASE 41 IU/L (46-116); ANION GAP 8 (8-16); ASPARTATE AMINO TRANSFERASE 21 U/L (10-37); BILIRUBIN,TOTAL 1.4 MG/DL (0.1-1.0); BLOOD UREA NITROGEN 40 MG/DL (7-18); CALCIUM 8.1 MG/DL (8.5-10.1); CHLORIDE 105 MMOL/L (99-107); CREATININE 1.29 MG/DL (0.40-0.90); GLUCOSE 130 MG/DL (70-104); MAGNESIUM 2.1 MG/DL (1.5-2.4); POTASSIUM 4.2 MMOL/L (3.5-5.1); SODIUM 139 MMOL/L (135-145); TOTAL CARBON DIOXIDE 26.3 MMOL/L (24-32); eGFR 42 ML/MIN
[2020-04-28 05:42] LABS: HEMATOCRIT 20.8 % (35.0-45.0)
--- NOTE | 2020-04-28 06:13 | NUR ---
Problems reprioritized. Patient report given, questions answered & plan of care reviewed with Catherine TRIVEDI.
--- NOTE | 2020-04-28 06:13 | NUR ---
Patient in room PCU 3025. I have received report from Lawanda TRIVEDI and had the opportunity to ask questions and assume patient care. Pt has blood running through her L EJ. In no apparent distress. Will continue to monitor closely.
[2020-04-28] MEDS: atorvastatin 10mg tablet PO SCH (07:32)
[2020-04-28] MEDS: spironolactone 25 MG tablet PO SCH ×2 (07:32→19:40)
[2020-04-28] MEDS: furosemide 40mg tablet PO SCH (07:32)
[2020-04-28] MEDS: venlafaxine XR 75mg capsule (Q24H) PO SCH (07:32)
[2020-04-28] MEDS: levoFLOXACIN-Levaquin 750MG/D5 150 ML IV SCH (07:33)
[2020-04-28] MEDS: lactobacillus rhamnosus 10,000 MMU CELLS/CAPSULE PO SCH ×2 (07:33→19:35)
[2020-04-28] MEDS: K and/or MAG REPLACEMENT MC SCH ×2 (07:48→19:43)
[2020-04-28] MEDS: metoprolol succinate 25mg (24-HOUR) SR. Tablet PO SCH (07:57)
[2020-04-28 10:20] LABS: BASOPHILS % (AUTO) 0.3 % (0-1); EOSINOPHILS # (AUTO) 0.2 X10'3 (0-0.9); EOSINOPHILS % (AUTO) 1.8 % (0-6); HEMATOCRIT 24.8 % (35.0-45.0); HEMOGLOBIN 8.2 g/dl (12.0-16.0); LYMPHOCYTES # (AUTO) 1.4 X10'3 (1.1-4.8); LYMPHOCYTES % (AUTO) 15.2 % (21-51); MEAN CORPUSCULAR HEMOGLOBIN 30.5 PG (27.0-31.0); MEAN CORPUSCULAR HGB CONC 33.1 g/dL (33.0-36.5); MEAN CORPUSCULAR VOLUME 92.1 FL (78-98); MONOCYTES # (AUTO) 0.8 X10'3 (0-0.9); MONOCYTES % (AUTO) 8.6 % (2-12); NEUTROPHILS # (AUTO) 6.8 X10'3 (1.8-7.7); NEUTROPHILS % (AUTO) 74.1 % (42-75); PLATELET COUNT 133 X10'3 (140-440); RED CELL DISTRIBUTION WIDTH 18.6 % (11.5-14.5); WHITE BLOOD COUNT 9.1 X10'3 (4.5-11.0)
[2020-04-28 12:18] LABS: ANISOCYTOSIS 2+; PLATELET ESTIMATE DECREASED; POLYCHROMASIA 1+
[2020-04-28] MEDS: HYDROmorphone 1 mg/ml syringe IV PRN (17:13)
--- NOTE | 2020-04-28 18:20 | NUR ---
Problems reprioritized. Patient report given, questions answered & plan of care reviewed with Regina TRIVEDI. Pt. is in good spirits, denied having any further pain and currently eating dinner.
--- NOTE | 2020-04-28 18:22 | NUR ---
Patient in room PCU 3025. I have received report from Catherine TRIVEDI and had the opportunity to ask questions and assume patient care.
[2020-04-29] VITALS (11 sets, daily range): BP systolic 90–132; BP diastolic 41–93
[2020-04-29 01:00] LABS: BASOPHILS % (AUTO) 0.4 % (0-1); EOSINOPHILS # (AUTO) 0.2 X10'3 (0-0.9); EOSINOPHILS % (AUTO) 2.4 % (0-6); HEMATOCRIT 22.9 % (35.0-45.0); HEMOGLOBIN 7.7 g/dl (12.0-16.0); LYMPHOCYTES # (AUTO) 1.6 X10'3 (1.1-4.8); LYMPHOCYTES % (AUTO) 17.6 % (21-51); MEAN CORPUSCULAR HEMOGLOBIN 30.9 PG (27.0-31.0); MEAN CORPUSCULAR HGB CONC 33.4 g/dL (33.0-36.5); MEAN CORPUSCULAR VOLUME 92.6 FL (78-98); MONOCYTES # (AUTO) 0.9 X10'3 (0-0.9); MONOCYTES % (AUTO) 9.7 % (2-12); NEUTROPHILS # (AUTO) 6.5 X10'3 (1.8-7.7); NEUTROPHILS % (AUTO) 69.9 % (42-75); PLATELET COUNT 136 X10'3 (140-440); RED BLOOD COUNT 2.48 X10'6 (4.20-5.60); RED CELL DISTRIBUTION WIDTH 19.3 % (11.5-14.5); WHITE BLOOD COUNT 9.3 X10'3 (4.5-11.0)
[2020-04-29] MEDS: pantoprazole 40MG/NS 100ML BAG 100 ML IV SCH ×5 (01:08→21:00)
[2020-04-29 01:21] LABS: ANISOCYTOSIS 2+; PLATELET ESTIMATE DECREASED
[2020-04-29 01:22] LABS: POLYCHROMASIA 1+
[2020-04-29 01:33] LABS: ALANINE AMINOTRANSFERASE 19 U/L (12-78); ALBUMIN 2.7 G/DL (3.4-5.0); ALBUMIN/GLOBULIN RATIO 0.8 (1.1-1.5); ALKALINE PHOSPHATASE 37 IU/L (46-116); ANION GAP 4 (8-16); ASPARTATE AMINO TRANSFERASE 21 U/L (10-37); BLOOD UREA NITROGEN 32 MG/DL (7-18); BUN/CREATININE RATIO 24.4 (6.6-38.0); CALCIUM 7.7 MG/DL (8.5-10.1); CHLORIDE 105 MMOL/L (99-107); CREATININE 1.31 MG/DL (0.40-0.90); GLUCOSE 107 MG/DL (70-104); POTASSIUM 4.4 MMOL/L (3.5-5.1); SODIUM 138 MMOL/L (135-145); TOTAL CARBON DIOXIDE 29.3 MMOL/L (24-32); TOTAL PROTEIN 6.1 G/DL (6.4-8.2); eGFR 42 ML/MIN
--- NOTE | 2020-04-29 06:25 | NUR ---
Problems reprioritized. Patient report given, questions answered & plan of care reviewed with Catherine TRIVEDI.
--- NOTE | 2020-04-29 06:32 | NUR ---
Patient in room PCU 3025. I have received report from Mica TRIVEDI and had the opportunity to ask questions and assume patient care.
[2020-04-29] MEDS: spironolactone 25 MG tablet PO SCH (07:34)
[2020-04-29] MEDS: metoprolol succinate 25mg (24-HOUR) SR. Tablet PO SCH (07:34)
[2020-04-29] MEDS: atorvastatin 10mg tablet PO SCH (07:34)
[2020-04-29] MEDS: furosemide 40mg tablet PO SCH (07:34)
[2020-04-29] MEDS: lactobacillus rhamnosus 10,000 MMU CELLS/CAPSULE PO SCH ×2 (07:34→19:16)
[2020-04-29] MEDS: venlafaxine XR 75mg capsule (Q24H) PO SCH (07:35)
[2020-04-29] MEDS: sodium ferric gluc complex inj 125 MG in normal saline 100ml IV soln 90 ML IV SCH (07:53)
[2020-04-29] MEDS ORDERED: levoFLOXACIN 750MG TABLET PO SCH (08:00)
[2020-04-29] MEDS: K and/or MAG REPLACEMENT MC SCH ×2 (08:00→19:17)
[2020-04-29] MEDS: HYDROmorphone 1 mg/ml syringe IV PRN ×2 (09:50→20:33)
--- NOTE | 2020-04-29 11:40 | NUR ---
at bedside, requested F/U CBC. Received orders to obtain CBC at 1500, EGD is scheduled around 12. Will continue to monitor closely.
[2020-04-29] MEDS ORDERED: fentaNYL/PF 50MCG/1 ML 2ML syringe ONE (12:30)
[2020-04-29] MEDS ORDERED: LIDOcaine Viscous 15ml cup ONE (12:31)
[2020-04-29] MEDS ORDERED: MIDAZolam 5mg/5ml vial ONE (12:31)
[2020-04-29] MEDS ORDERED: PEG 3350/Na sulf,bicarb,Cl/KCl oral sol 4 liter bottle PO ONE (13:45)
--- NOTE | 2020-04-29 15:50 | NUR ---
Patient in room PCU 3025. I have received report from Catherine TRIVEDI and had the opportunity to ask questions and assume patient care.
[2020-04-29 17:36] LABS: BASOPHILS % (AUTO) 0.6 % (0-1); EOSINOPHILS # (AUTO) 0.1 X10'3 (0-0.9); HEMOGLOBIN 7.3 g/dl (12.0-16.0); LYMPHOCYTES # (AUTO) 1.1 X10'3 (1.1-4.8); LYMPHOCYTES % (AUTO) 18.9 % (21-51); MEAN CORPUSCULAR HEMOGLOBIN 31.3 PG (27.0-31.0); MEAN CORPUSCULAR HGB CONC 33.2 g/dL (33.0-36.5); MEAN CORPUSCULAR VOLUME 94.2 FL (78-98); MEAN PLATELET VOLUME 7.8 FL (7.4-10.4); MONOCYTES # (AUTO) 0.4 X10'3 (0-0.9); MONOCYTES % (AUTO) 6.8 % (2-12); NEUTROPHILS # (AUTO) 4.3 X10'3 (1.8-7.7); NEUTROPHILS % (AUTO) 71.7 % (42-75); PLATELET COUNT 132 X10'3 (140-440); RED BLOOD COUNT 2.32 X10'6 (4.20-5.60); RED CELL DISTRIBUTION WIDTH 18.9 % (11.5-14.5)
[2020-04-29 17:46] LABS: HEMATOCRIT 21.8 % (35.0-45.0)
--- NOTE | 2020-04-29 17:49 | NUR ---
CRITICAL LAB VALUE TAKEN FROM LAB, REPORTED TO MD AND PRIMARY RN.
--- NOTE | 2020-04-29 18:50 | NUR ---
Problems reprioritized. Patient report given, questions answered & plan of care reviewed with Jolele TRIVEDI. Patient stable at transfer of care.
--- NOTE | 2020-04-29 21:37 | NUR ---
PAGER ID: [phone] MESSAGE: [id number] Benito Joyce: last h/h drawn at 1724 7.3/21.8. Patient is dizzy and pale to face. drawing an H/H now, would you like to do anything else? Regina TRIVEDI 9923
[2020-04-29 22:00] LABS: BASOPHILS % (AUTO) 0.5 % (0-1); EOSINOPHILS # (AUTO) 0.2 X10'3 (0-0.9); HEMATOCRIT 23.8 % (35.0-45.0); HEMOGLOBIN 7.8 g/dl (12.0-16.0); LYMPHOCYTES # (AUTO) 1.6 X10'3 (1.1-4.8); LYMPHOCYTES % (AUTO) 18.1 % (21-51); MEAN CORPUSCULAR HEMOGLOBIN 30.7 PG (27.0-31.0); MEAN CORPUSCULAR HGB CONC 32.6 g/dL (33.0-36.5); MEAN CORPUSCULAR VOLUME 94.1 FL (78-98); MEAN PLATELET VOLUME 7.8 FL (7.4-10.4); MONOCYTES # (AUTO) 0.9 X10'3 (0-0.9); MONOCYTES % (AUTO) 10.1 % (2-12); NEUTROPHILS # (AUTO) 6.3 X10'3 (1.8-7.7); NEUTROPHILS % (AUTO) 69.3 % (42-75); PLATELET COUNT 174 X10'3 (140-440); RED BLOOD COUNT 2.53 X10'6 (4.20-5.60); RED CELL DISTRIBUTION WIDTH 18.6 % (11.5-14.5)
[2020-04-30] MEDS: pantoprazole 40MG/NS 100ML BAG 100 ML IV SCH ×5 (01:00→21:00)
[2020-04-30 02:00] VITALS: BP 116/62
[2020-04-30] MEDS: HYDROmorphone 1 mg/ml syringe IV PRN ×3 (03:18→23:30)
[2020-04-30 05:33] LABS: BASOPHILS % (AUTO) 0.6 % (0-1); EOSINOPHILS # (AUTO) 0.1 X10'3 (0-0.9); EOSINOPHILS % (AUTO) 1.6 % (0-6); HEMATOCRIT 23.5 % (35.0-45.0); HEMOGLOBIN 7.7 g/dl (12.0-16.0); LYMPHOCYTES # (AUTO) 1.4 X10'3 (1.1-4.8); LYMPHOCYTES % (AUTO) 17.1 % (21-51); MEAN CORPUSCULAR HEMOGLOBIN 30.8 PG (27.0-31.0); MEAN CORPUSCULAR HGB CONC 32.7 g/dL (33.0-36.5); MEAN CORPUSCULAR VOLUME 94.1 FL (78-98); MONOCYTES # (AUTO) 0.7 X10'3 (0-0.9); MONOCYTES % (AUTO) 8.3 % (2-12); NEUTROPHILS # (AUTO) 5.9 X10'3 (1.8-7.7); NEUTROPHILS % (AUTO) 72.4 % (42-75); PLATELET COUNT 168 X10'3 (140-440); RED CELL DISTRIBUTION WIDTH 18.7 % (11.5-14.5); WHITE BLOOD COUNT 8.1 X10'3 (4.5-11.0)
[2020-04-30 05:42] LABS: ALANINE AMINOTRANSFERASE 21 U/L (12-78); ALBUMIN 2.9 G/DL (3.4-5.0); ALBUMIN/GLOBULIN RATIO 0.8 (1.1-1.5); ALKALINE PHOSPHATASE 47 IU/L (46-116); ANION GAP 9 (8-16); ASPARTATE AMINO TRANSFERASE 24 U/L (10-37); BLOOD UREA NITROGEN 25 MG/DL (7-18); CHLORIDE 102 MMOL/L (99-107); CREATININE 1.47 MG/DL (0.40-0.90); GLUCOSE 126 MG/DL (70-104); MAGNESIUM 1.8 MG/DL (1.5-2.4); POTASSIUM 3.7 MMOL/L (3.5-5.1); SODIUM 138 MMOL/L (135-145); TOTAL PROTEIN 6.5 G/DL (6.4-8.2); eGFR 37 ML/MIN
--- NOTE | 2020-04-30 06:24 | NUR ---
Patient in room PCU 3025. I have received report from Regina TRIVEDI and had the opportunity to ask questions and assume patient care.
[2020-04-30 06:30] VITALS: BP 104/52
[2020-04-30] MEDS: K and/or MAG REPLACEMENT MC SCH ×2 (07:57→20:00)
[2020-04-30] MEDS: lactobacillus rhamnosus 10,000 MMU CELLS/CAPSULE PO SCH ×2 (08:00→19:34)
[2020-04-30] MEDS: atorvastatin 10mg tablet PO SCH (08:00)
[2020-04-30] MEDS: levoFLOXACIN 750MG TABLET PO SCH (08:03)
[2020-04-30] MEDS: venlafaxine XR 75mg capsule (Q24H) PO SCH (08:03)
[2020-04-30] MEDS: metoprolol succinate 25mg (24-HOUR) SR. Tablet PO SCH (08:08)
[2020-04-30] MEDS: sodium ferric gluc complex inj 125 MG in normal saline 100ml IV soln 90 ML IV SCH (08:21)
[2020-04-30] MEDS: ondansetron/PF 4mg/2ml inj IV PRN (08:26)
[2020-04-30 08:54] LABS: PLATELET ESTIMATE NORMAL; POLYCHROMASIA 1+
[2020-04-30 08:56] LABS: ANISOCYTOSIS 2+; HYPOCHROMASIA 1+
[2020-04-30 11:00] VITALS: BP 129/58
[2020-04-30 15:00] VITALS: BP 103/35
--- NOTE | 2020-04-30 18:11 | NUR ---
Problems reprioritized. Patient report given, questions answered & plan of care reviewed with Ministerio RN.
[2020-04-30 19:00] VITALS: BP 103/46
[2020-04-30 23:00] VITALS: BP 107/58
[2020-05-01] VITALS (10 sets, daily range): BP systolic 93–138; BP diastolic 43–76
[2020-05-01] MEDS: pantoprazole 40MG/NS 100ML BAG 100 ML IV SCH ×5 (02:39→22:10)
--- NOTE | 2020-05-01 05:30 | NUR ---
Patient in room U 3025. I have received report from Fabby TRIVEDI and had the opportunity to ask questions and assume patient care. Addendum: 05/01/20 at 0530 by Kade Molina RN amend time 04/30 [id number]
--- NOTE | 2020-05-01 07:15 | NUR ---
Patient in room PCU 3025. I have received report from Ministerio TRIVEDI and had the opportunity to ask questions and assume patient care.
[2020-05-01] MEDS: K and/or MAG REPLACEMENT MC SCH ×2 (08:00→20:00)
--- NOTE | 2020-05-01 08:21 | NUR ---
GI Lab called, spoke to Kari. Pt will have procedure noonish, keep NPO, meds ok and IV meds ok. Will continue to monitor.
[2020-05-01] MEDS: sodium ferric gluc complex inj 125 MG in normal saline 100ml IV soln 90 ML IV SCH (08:28)
[2020-05-01] MEDS: atorvastatin 10mg tablet PO SCH (08:28)
[2020-05-01] MEDS: lactobacillus rhamnosus 10,000 MMU CELLS/CAPSULE PO SCH ×2 (08:28→19:47)
[2020-05-01] MEDS: metoprolol succinate 25mg (24-HOUR) SR. Tablet PO SCH (08:31)
[2020-05-01] MEDS: venlafaxine XR 75mg capsule (Q24H) PO SCH (08:33)
--- NOTE | 2020-05-01 08:37 | NUR ---
Paged PICC Nurse Re: Brook Oliver RM 2196K. Pt hard stick, needing another line. Please and Thank you Eneida TRIVDEI [id number]
[2020-05-01 09:33] LABS: BASOPHILS % (AUTO) 0.4 % (0-1); EOSINOPHILS # (AUTO) 0.1 X10'3 (0-0.9); EOSINOPHILS % (AUTO) 1.6 % (0-6); HEMATOCRIT 24.7 % (35.0-45.0); LYMPHOCYTES % (AUTO) 16.1 % (21-51); MEAN CORPUSCULAR HEMOGLOBIN 31.1 PG (27.0-31.0); MEAN CORPUSCULAR HGB CONC 32.3 g/dL (33.0-36.5); MEAN CORPUSCULAR VOLUME 96.4 FL (78-98); MEAN PLATELET VOLUME 8.2 FL (7.4-10.4); MONOCYTES # (AUTO) 0.6 X10'3 (0-0.9); MONOCYTES % (AUTO) 10.2 % (2-12); NEUTROPHILS # (AUTO) 4.5 X10'3 (1.8-7.7); NEUTROPHILS % (AUTO) 71.7 % (42-75); PLATELET COUNT 142 X10'3 (140-440); RED BLOOD COUNT 2.57 X10'6 (4.20-5.60); RED CELL DISTRIBUTION WIDTH 18.9 % (11.5-14.5); WHITE BLOOD COUNT 6.3 X10'3 (4.5-11.0)
[2020-05-01 09:54] LABS: ALANINE AMINOTRANSFERASE 21 U/L (12-78); ALBUMIN 3.1 G/DL (3.4-5.0); ALBUMIN/GLOBULIN RATIO 0.9 (1.1-1.5); ALKALINE PHOSPHATASE 50 IU/L (46-116); ANION GAP 5 (8-16); ASPARTATE AMINO TRANSFERASE 23 U/L (10-37); BILIRUBIN,TOTAL 0.8 MG/DL (0.1-1.0); BLOOD UREA NITROGEN 18 MG/DL (7-18); BUN/CREATININE RATIO 13.1 (6.6-38.0); CHLORIDE 102 MMOL/L (99-107); CREATININE 1.37 MG/DL (0.40-0.90); GLUCOSE 88 MG/DL (70-104); MAGNESIUM 1.9 MG/DL (1.5-2.4); POTASSIUM 3.6 MMOL/L (3.5-5.1); SODIUM 137 MMOL/L (135-145); TOTAL CARBON DIOXIDE 29.6 MMOL/L (24-32); TOTAL PROTEIN 6.6 G/DL (6.4-8.2); eGFR 40 ML/MIN
[2020-05-01 10:39] LABS: ANISOCYTOSIS 2+; HYPOCHROMASIA 1+; PLATELET ESTIMATE NORMAL; POLYCHROMASIA 2+; STOMATOCYTES 1+; TEAR DROP CELLS FEW
[2020-05-01 10:40] LABS: ELLIPTOCYTES 1+
--- NOTE | 2020-05-01 11:50 | NUR ---
Initial: Pt presented with c/o SOB and admit with JAX, CHF, and elevated troponin. Multifactorial resp failure from COPD exacerbation, PNA, and acute on chronic diastolic CHF resolved per MD notes. Pt s/p CTA which was negative for PE but shows groundglass PNA, infiltrates vs mets per radiologist all per MD notes. Pt currently NPO, previously on a heart healthy diet then clear liquid diet documented with overall 75-100% PO intake with the exception of 50% PO intake x 2 meals. LBM 7/8 documented as diarrhea, likely r/t GoLytely for EGD/colonoscopy for anemia. No nutrition intervention implemented at this time given NPO diet order. Will continue to follow and make recommendations as appropriate. Recommendations: 1) Advance to heart healthy diet as medically indicated 2) Bowel care PRN 3) Scaled weights per rx Addendum: 05/01/20 at [address] Amended: Links added.
[2020-05-01] MEDS ORDERED: fentaNYL/PF 50MCG/1 ML 2ML syringe ONE (14:45)
[2020-05-01] MEDS ORDERED: MIDAZolam 5mg/5ml vial ONE (14:46)
--- NOTE | 2020-05-01 17:06 | NUR ---
Paged Dr. Quinn Re: Nena Oliver RM 5577B. ARELY pt is back from GI Lab, Pt is inquiring about eating. Pt Heart Rate is low 50-40s. Please advise, Eneida TRIVEDI 2622 Addendum: 05/01/20 at 1712 by Eneida Nunez RN Dr. Quinn at bedside with patient. New orders Heart Healthy. aware of low HR, Will continue to monitor.
--- NOTE | 2020-05-01 18:30 | NUR ---
Patient in room PCU 3025. I have received report from Eneida TRIVEDI and had the opportunity to ask questions and assume patient care.
--- NOTE | 2020-05-01 18:30 | NUR ---
Problems reprioritized. Patient report given, questions answered & plan of care reviewed with Shyanne TRIVEDI.
[2020-05-02] MEDS: pantoprazole 40MG/NS 100ML BAG 100 ML IV SCH ×2 (01:00→07:59)
[2020-05-02 02:00] VITALS: BP 108/52
--- NOTE | 2020-05-02 06:15 | NUR ---
Patient in room PCU 3025. I have received report from Shyanne TRIVEDI and had the opportunity to ask questions and assume patient care.
--- NOTE | 2020-05-02 06:21 | NUR ---
Problems reprioritized. Patient report given, questions answered & plan of care reviewed with Anca TRIVEDI.
[2020-05-02 07:00] VITALS: BP 123/59
[2020-05-02] MEDS: lactobacillus rhamnosus 10,000 MMU CELLS/CAPSULE PO SCH (07:59)
[2020-05-02] MEDS: K and/or MAG REPLACEMENT MC SCH (08:00)
[2020-05-02] MEDS: venlafaxine XR 75mg capsule (Q24H) PO SCH (08:00)
[2020-05-02] MEDS: levoFLOXACIN 750MG TABLET PO SCH (08:00)
[2020-05-02] MEDS: atorvastatin 10mg tablet PO SCH (08:01)
--- NOTE | 2020-05-02 08:07 | NUR ---
Paged Pharmacy Please send Ferrlicit Bag for pt. Please and Thank you
[2020-05-02] MEDS: sodium ferric gluc complex inj 125 MG in normal saline 100ml IV soln 90 ML IV SCH (09:31)
--- NOTE | 2020-05-02 09:35 | NUR ---
Paged Picc Re: Brook Oliver RM 1626N. Patient needing another line and is a very hard to place one in. Please and Thank you Eneida TRIVEDI [phone]
--- NOTE | 2020-05-02 10:44 | NUR ---
Dr. Quinn at bedside with Patient. New orders to discharge and lower metoprolol medications due to low HR. Will go over discaharge instructions
[2020-05-02] MEDS ORDERED: FERR324T4 PO (10:49)
[2020-05-02] MEDS ORDERED: PANT40TA4 PO (10:49)
[2020-05-02] MEDS ORDERED: SENN1TAB82 PO (10:49)
[2020-05-02] MEDS ORDERED: METO-384 PO (10:49)
[2020-05-02] MEDS ORDERED: HYDR25SU32 RC (10:49)
--- NOTE | 2020-05-02 11:50 | NUR ---
Patient OK to discharge per MD orders. All discharge instructions reviewed with patient and all questions answered. New prescription were e scripted to pharmacy and with one printed prescription. PIVB was discontinued and Tele box removed and returned. All belongings were collected and sent with patient. Patient was escorted via wheelchair and RN to front of [facility], where Yobany met with patient and was able to transferred into vehicle. Patient and were instructed on discharge instructions and handed a printed script. All items were sent with patient in vehicle.
== END 2020-05-02 11:55 | disposition home or self-care (01) | DRG 190 ==
LOC: ER 21:51 → ED HOLD 04-26 00:55 → PCU 3S 04-26 02:27
PROVIDERS: ADMIT Family Medicine; ATTEND Family Medicine
PROC: 4A02XM4 Measurement of Cardiac Total Activity, External Approach (ICD-10-PCS; principal; 2020-04-26)
PROC: 3E033HZ Introduction of Radioactive Substance into Peripheral Vein, Percutaneous Approach (ICD-10-PCS; 2020-04-26)
PROC: 5A09357 Assistance with Respiratory Ventilation, Less than 24 Consecutive Hours, Continuous Positive Airway Pressure (ICD-10-PCS; 2020-04-26)
PROC: 30233N1 Transfusion of Nonautologous Red Blood Cells into Peripheral Vein, Percutaneous Approach (ICD-10-PCS; 2020-04-27)
PROC: 5A09357 Assistance with Respiratory Ventilation, Less than 24 Consecutive Hours, Continuous Positive Airway Pressure (ICD-10-PCS; 2020-04-27)
PROC: 0DB68ZX Excision of Stomach, Via Natural or Artificial Opening Endoscopic, Diagnostic (ICD-10-PCS; 2020-04-29)
PROC: 0DBP8ZZ Excision of Rectum, Via Natural or Artificial Opening Endoscopic (ICD-10-PCS; 2020-05-01)
DX: I21.A1 Myocardial infarction type 2 (principal); N17.9 Acute kidney failure, unspecified; J96.00 Acute respiratory failure, unspecified whether with hypoxia or hypercapnia; E78.5 Hyperlipidemia, unspecified; J18.9 Pneumonia, unspecified organism; I50.33 Acute on chronic diastolic (congestive) heart failure; I11.0 Hypertensive heart disease with heart failure; J44.0 Chronic obstructive pulmonary disease with (acute) lower respiratory infection; Z20.828 Contact with and (suspected) exposure to other viral communicable diseases; J44.1 Chronic obstructive pulmonary disease with (acute) exacerbation; B19.20 Unspecified viral hepatitis C without hepatic coma; E66.01 Morbid (severe) obesity due to excess calories; D64.9 Anemia, unspecified; F41.9 Anxiety disorder, unspecified; F32.9 Major depressive disorder, single episode, unspecified; Z68.42 Body mass index [BMI] 45.0-49.9, adult; K64.8 Other hemorrhoids; K29.70 Gastritis, unspecified, without bleeding
CPT/HCPCS: 36415; 36430; 43239; 45385; 71045; 71275; 76937; 78452; 80053; 82272; 82728; 83540; 83550; 83735; 83880; 84145; 84443; 84484; 85025; 85379; 85384; 85610; 85730; 86885; 86900; 86901; 86920; 87081; 87635; 93005; 93017; 93306; 93970; 94660; 94760; 99152; 99153; 99285; A4620; A9500; C1773; C9113; G0378; J0280; J1170; J1644; J1940; J1956; J2060; J2250; J2405; J2785; J2916; J3010; J7030; J7040; P9016; Q9967

== ENCOUNTER 2024-05-09 07:15 | Day surgery (SDC) | payer BC ==
[2024-05-03 11:34] LABS: BASOPHILS % (AUTO) 0.7 % (0-1); EOSINOPHILS # (AUTO) 0.1 X10'3 (0-0.9); EOSINOPHILS % (AUTO) 2.1 % (0-6); LYMPHOCYTES # (AUTO) 1.2 X10'3 (1.1-4.8); LYMPHOCYTES % (AUTO) 17.4 % (21-51); MEAN CORPUSCULAR HGB CONC 33.8 g/dL (33.0-36.5); MEAN CORPUSCULAR VOLUME 109.5 FL (78-98); MEAN PLATELET VOLUME 7.9 FL (7.4-10.4); MONOCYTES # (AUTO) 0.7 X10'3 (0-0.9); MONOCYTES % (AUTO) 9.8 % (2-12); NEUTROPHILS # (AUTO) 4.7 X10'3 (1.8-7.7); PRE OP HEMATOCRIT 49.8 % (35.0-45.0); PRE OP HEMOGLOBIN 16.8 g/dL (12.0-16.0); PRE OP PLATELET COUNT 129 X10'3 (140-440); PRE OP WHITE BLOOD COUNT 6.8 10'3 (4.8-10.8); RED BLOOD COUNT 4.55 X10'6 (4.20-5.60)
[2024-05-03 11:35] LABS: BILIRUBIN,URINE NEGATIVE (Neg); CLARITY,URINE CLOUDY (Clear); COLOR,URINE YELLOW (Yellow); GLUCOSE, URINE >=1000 mg/dl (Neg); KETONES,URINE NEGATIVE (Neg); LEUKOCYTE ESTERASE ,URINE NEGATIVE (Neg); NITRITES, URINE NEGATIVE (Neg); OCCULT BLOOD,URINE MODERATE (Neg); PROTEIN,URINE NEGATIVE (Neg); UROBILINOGEN,URINE 0.2 E.U/dL (0.2-1.0)
[2024-05-03 11:37] LABS: UA COLLECTION TYPE CLN CATCH MIDSTREAM
[2024-05-03 11:44] LABS: BACTERIA,URINE 2+ /HPF (Neg); HYALINE CASTS 0-3 /LPF (NEGATIVE); SQUAMOUS EPITHELIAL CELL,UR MANY /LPF (FEW); WBC,URINE 0-4 /HPF (0-4)
[2024-05-03 11:50] LABS: ALBUMIN 3.7 G/DL (3.4-5.0); ALBUMIN/GLOBULIN RATIO 0.8 (1.1-1.5); ALKALINE PHOSPHATASE 57 IU/L (46-116); BLOOD UREA NITROGEN 16 MG/DL (7-18); BUN/CREATININE RATIO 15.5 (10.0-20.0); CALCIUM 9.8 MG/DL (8.5-10.1); CHLORIDE 100 MMOL/L (99-107); CREATININE 1.03 MG/DL (0.40-0.90); PRE OP ALT 41 U/L (30-65); PRE OP ANION GAP 7 (8-16); PRE OP AST 48 U/L (10-37); PRE OP BILIRUB, TOTAL 0.9 MG/DL (0.0-1.0); PRE OP GLUCOSE 111 MG/DL (70-104); PRE OP POTASSIUM 3.8 MMOL/L (3.4-5.1); PRE OP SODIUM 141 MMOL/L (135-145); TOTAL CARBON DIOXIDE 33.8 MMOL/L (24-32); TOTAL PROTEIN 8.6 G/DL (6.4-8.2); eGFR 54 ML/MIN
[2024-05-09] VITALS (18 sets, daily range): BP systolic 113–156; BP diastolic 67–97; PULSE 75–116; RESP 13–27; TEMP 98.2; O2SAT 86–96
[~2024-05-09] VITALS: Ht 162.6 cm; Wt 116.0 kg
[2024-05-09] MEDS: ceFOXitin 2GM-NS 100mL ADDvant 100 ML IV ONE (05:30)
[~2024-05-09 07:15] MED LIST changes: -ATOR10TA87 PO; +ATOR40TA71 PO; +BECL7.3A INH; +CHOL500044 PO; -COMP1EAC86 INH; +DOCUMENT DATE & TIME OF BETA-BLOCKER PO ONE; +DULA1.5P SUBCUT; +EMPA10TA PO; -FURO-149 PO; +FURO40TA4 PO; -IPRA3AMP9 NEB; -LEVO500T89 PO; -LISI2.5T2 PO; +MAVA5CAP PO; +METO-384 PO; -PRED10TA23 PO; -PRED20TA PO; -PROP20TA6 PO
[2024-05-09] MEDS: ringers solution, lacted 1,000 ML IV SCH (07:59)
[2024-05-09] MEDS: famotidine 20mg tablet PO ONE (07:59)
[2024-05-09] MEDS ORDERED: succinylcholine 20mg/ml inj IV ONE (10:40)
[2024-05-09] MEDS ORDERED: ondansetron/PF 4mg/2ml inj ONE (10:41)
[2024-05-09] MEDS ORDERED: LIDOcaine 2% (20mg/ml) 5ml vial ONE (10:41)
[2024-05-09] MEDS ORDERED: propofol inj 20 ML IV ONE (10:41)
[2024-05-09] MEDS ORDERED: fentaNYL/PF 50MCG/1 ML 2ML syringe ONE (10:43)
[2024-05-09] MEDS ORDERED: midazolam 1 mg/ML 2ml injection ONE (10:43)
[2024-05-09] MEDS ORDERED: labetalol 20mg/4ml (5mg/ml) syringe IV ONE (11:36)
== END 2024-05-09 14:26 | disposition home or self-care (01) ==
LOC: PAS 07:15
PROVIDERS: ATTEND Obstetrics & Gynecology Obstetrics
DX: N95.0 Postmenopausal bleeding (principal); I44.7 Left bundle-branch block, unspecified; I13.0 Hypertensive heart and chronic kidney disease with heart failure and stage 1 through stage 4 chronic kidney disease, or unspecified chronic kidney disease; E11.22 Type 2 diabetes mellitus with diabetic chronic kidney disease; N18.9 Chronic kidney disease, unspecified; I50.9 Heart failure, unspecified; E66.01 Morbid (severe) obesity due to excess calories; G47.33 Obstructive sleep apnea (adult) (pediatric); Z95.810 Presence of automatic (implantable) cardiac defibrillator; Z98.891 History of uterine scar from previous surgery; Z98.890 Other specified postprocedural states; Z68.41 Body mass index [BMI] 40.0-44.9, adult; Z88.5 Allergy status to narcotic agent; Z88.1 Allergy status to other antibiotic agents
CPT/HCPCS: 36415; 58558; 80053; 81001; 82948; 85025; 86885; 86900; 86901; 93005; J0330; J0694; J2250; J2405; J2704; J3010; J3490; J7030; J7120; Z7506; Z7512; A4355; A4615; A4618; A6258; A7000